=== PATIENT | female | born 1985 | race Caucasian/White ===

== ENCOUNTER 2016-12-27 11:37 | Emergency (ER) | payer SELFPAY ==
[2016-12-27 11:51] VITALS: TEMP 97.9
[2016-12-27] MEDS ORDERED: SODIUM CHLORIDE 0.9% (FLUSH) 10 ML SYG IV PRN (12:15)
[2016-12-27] MEDS ORDERED: SODIUM CHLORIDE 0.9% 1000ML 1,000 ML IVS ONE (12:17)
[2016-12-27] MEDS ORDERED: MECLIZINE HCL 12.5 MG TAB PO ONE (12:17)
[2016-12-27] MEDS ORDERED: METOCLOPRAMIDE HCL INJ 10 MG/2 ML VIAL IV ONE (12:17)
[2016-12-27] MEDS: diphenhydrAMINE HCL 50 MG/ML VIAL IV ONE ×2 (12:45→12:46)
--- NOTE | 2016-12-27 12:45 | CT ---
EXAM DESCRIPTION: Head. CT head without contrast. CLINICAL HISTORY: vertigo COMPARISON: None available TECHNIQUE: Multiple axial images of the head without contrast. This exam was performed according to our departmental dose-optimization program, which includes automated exposure control, adjustment of the mA and/or kV according to patient size and/or use of iterative reconstruction technique. FINDINGS: There is no CT evidence of intracranial hemorrhage, mass effect, or acute cortical infarction. The brain parenchyma and ventricles are normal. There are no abnormal extra-axial fluid collections. Vascular structures are unremarkable. There is no acute calvarial defect. Absent right frontal sinus, a developmental variant. Visualized paranasal sinuses and mastoid air cells are clear. IMPRESSION: No CT evidence of an acute intracranial abnormality. If symptoms persist, consider follow-up MRI. Electronically signed by: Raciel Scruggs MD 12/27/2016 12:44 PM CDT
--- NOTE | 2016-12-27 13:59 | ED.PDOC ---
History of Present Illness - General Chief Complaint: Neuro Symptoms/Deficits Stated Complaint: dizziness Time Seen by Provider: 12/27/16 12:01 Source: patient Exam Limitations: no limitations - History of Present Illness Initial Comments: PT REPORTS SUDDEN ONSET OF VERTIGO AND DIZZINESS THAT OCCURRED WHILE SHE WAS TALKING TO FAMILY MEMBERS AND LAUGHING. PT DENIES NAUSEA OR FOCAL WEAKNESS. Timing/Duration: intermittent Severity: moderate Improving Factors: immobilization Worsening Factors: movement Associated Symptoms: denies symptoms Allergies/Adverse Reactions: Allergies Codeine Allergy (Verified 12/27/16 11:51) Home Medications: Ambulatory Orders Meclizine HCl [Meclizine 25] 50 mg PO Q6HR PRN #30 tab 12/27/16 Review of Systems - Review of Systems Constitutional: Denies: chills, fever EENTM: Denies: double vision, ear pain Respiratory: Denies: cough, short of breath Cardiology: Denies: chest pain, palpitations Gastrointestinal/Abdominal: Denies: abdominal pain, vomiting Genitourinary: Denies: dysuria, hematuria Musculoskeletal: Denies: joint pain, joint swelling Skin: States: no symptoms reported Neurological: Denies: headache, numbness, paresthesia, tingling Past Medical History (General) - Patient Medical History Hx Seizures: No Hx Stroke: No Hx Dementia: No Hx Asthma: No Hx of COPD: No Hx Cardiac Disorders: No Hx Congestive Heart Failure: No Hx Pacemaker: No Hx Hypertension: No Hx Thyroid Disease: No Hx Diabetes: No Hx Gastroesophageal Reflux: No Hx Renal Disease: No Surgical History: other - Female History Patient is a Female of Child Bearing Age (10 -59 yrs old): Yes Patient : No Family Medical History - Family History Mother Family History: No Known Physical Exam - Physical Exam General Appearance: Alert, Comfortable, No apparent distress Eye Exam: bilateral normal Ears, Nose, Throat: hearing grossly normal, normal ENT inspection, normal pharynx Neck: non-tender, full range of motion, supple Respiratory: normal breath sounds, no respiratory distress Cardiovascular/Chest: regular rate, rhythm, no murmur Gastrointestinal/Abdominal: non tender, soft Back Exam: normal inspection Extremity: normal range of motion Neurologic: no motor/sensory deficits, alert, normal mood/affect, oriented x 3 Skin Exam: normal color, warm/dry Progress - Progress Progress: 12/27/16 14:38 PT REPORTS COMPLETE RESOLUTION OF SYMPTOMS ON REASSESSMENT. LABS AND CT FINDINGS DISCUSSED. - Results/Orders Results/Orders: 12/27/16 12:15 IV Care:Saline Lock per Protoc QSHIFT Telemetry .ONCE Sodium Chloride 0.9% (Flush) [Saline Flush Syringe] 10 ml IV PRN PRN EKG STAT Laboratory Results - last 24 hr 12/27/16 12/27/16 12/27/16 12:30 12:30 12:30 WBC 6.5 RBC 4.60 Hgb 13.1 Hct 39.5 MCV 85.9 MCH 28.4 MCHC 33.1 RDW 13.4 Plt Count 274 MPV 8.1 Absolute Neuts (auto) 3.60 Absolute Lymphs (auto) 1.80 Absolute Monos (auto) 0.70 Absolute Eos (auto) 0.30 Absolute Basos (auto) 0.10 Neutrophils % 55.9 Lymphocytes % 28.2 Monocytes % 11.0 H Eosinophils % 4.0 Basophils % 0.9 Sodium 137 Potassium 4.0 Chloride 103 Carbon Dioxide 29 Anion Gap 9.0 L BUN 10 Creatinine 0.65 BUN/Creatinine Ratio 15.4 Random Glucose 103 Serum Osmolality 273.1 L Calcium 9.0 Total Bilirubin 0.5 AST 26 ALT 31 Alkaline Phosphatase 56 Serum Total Protein 7.6 Albumin 4.5 Globulin 3.1 Albumin/Globulin Ratio 1.5 Serum HCG, Qual Negative - EKG/XRAY/CT EKG: Sinus - 69BPM, NL INTERVALS, NL AXIS, no ST T wave changes - NO OLD EKG FOR COMPARISON Departure - Departure Clinical Impression: Benign positional vertigo Time of Disposition: 14:39 Disposition: Discharge to Home or Self Care Condition: Good Departure Forms: ED Discharge - Pt. Copy, Patient Portal Self Enrollment Instructions: DI for Benign Paroxysmal Positional Vertigo Diet: resume usual diet Activity: increase activity as tolerated Referrals: [facility] [Provider Group] - 1-5 Days Prescriptions: Meclizine HCl [Meclizine 25] 50 mg PO Q6HR PRN #30 tab PRN Reason: Dizziness Home Medications: Ambulatory Orders Meclizine HCl [Meclizine 25] 50 mg PO Q6HR PRN #30 tab 12/27/16
[2016-12-27 14:22] VITALS: BP 134/80; O2SAT 98
== END 2016-12-27 14:46 | disposition home or self-care (01) ==
LOC: ER 11:37
DX: R42 Dizziness and giddiness (principal); Z88.6 Allergy status to analgesic agent
CPT/HCPCS: 70450; 80053; 84703; 85025; 93005; J1200; J2765; J7030

== ENCOUNTER 2017-12-06 17:01 | Emergency (ER) | payer BC ==
--- NOTE | 2017-12-06 20:07 | ED.PDOC ---
History of Present Illness - General Chief Complaint: GI Problem Stated Complaint: bilateral flank pain Time Seen by Provider: 12/06/17 19:58 Information Source: patient Exam Limitations: no limitations Additional Information: PT C/O PRIMARILY R FLANK PAIN WITH RADIATION TO RLQ X 1 WEEK. NO PRECIPITATING OR RELIEVING FACTORS. SOME WORSE WITH URINATION. MILD TO MOD IN INTENSITY - History of Present Illness Improving Factors: nothing Associated Symptoms: denies symptoms Review of Systems - Review of Systems Constitutional: Denies: chills, fever EENTM: States: no symptoms reported Respiratory: States: no symptoms reported Cardiology: States: no symptoms reported Gastrointestinal/Abdominal: States: abdominal pain. Denies: nausea, vomiting Genitourinary: Denies: discharge, dysuria, hematuria Musculoskeletal: States: back pain. Denies: joint pain Skin: States: no symptoms reported Neurological: Denies: numbness, paresthesia, weakness Endocrine: States: no symptoms reported Hematologic/Lymphatic: States: no symptoms reported Past Medical History (General) - Patient Medical History Hx Seizures: No Hx Stroke: No Hx Dementia: No Hx Asthma: No Hx of COPD: No Hx Cardiac Disorders: No Hx Congestive Heart Failure: No Hx Pacemaker: No Hx Hypertension: No Hx Thyroid Disease: No Hx Diabetes: No Hx Gastroesophageal Reflux: No Hx Renal Disease: No Hx Cancer: No Hx of HIV: No Hx Hepatitis C: No Hx MRSA: No Other Surgeries:: , BTL - Vaccination History Hx Tetanus, Diphtheria Vaccination: No Hx Influenza Vaccination: Yes Hx Pneumococcal Vaccination: No - Female History Patient : No Family Medical History - Family History Mother Family History: No Known Physical Exam - Physical Exam General Appearance: Alert, No apparent distress Eyes, Ears, Nose, Throat Exam: PERRL/EOMI, normal ENT inspection Neck: non-tender, full range of motion, supple Respiratory: lungs clear, normal breath sounds Cardiovascular/Chest: regular rate, rhythm, no murmur Gastrointestinal/Abdominal: non tender, soft, no organomegaly Back Exam: normal inspection, no vertebral tenderness, CVA tenderness (R) Extremity: normal range of motion, non-tender, normal inspection, no pedal edema Neurologic: alert, normal mood/affect Skin Exam: normal color, warm/dry Lymphatic: no adenopathy Progress - Progress Progress: 12/06/17 21:31 SLEEPING, FEELS BETTER, PAIN HAS RESOLVED. Departure - Departure Clinical Impression: Flank pain ICD-10 Supporting Text: DDX: MS PAIN, URETERAL SPASM, URETERAL COLIC Time of Disposition: 21:32 Disposition: Discharge to Home or Self Care Condition: Good Departure Forms: ED Discharge - Pt. Copy, Patient Portal Self Enrollment Prescriptions: Cyclobenzaprine HCl [Flexeril] 10 mg PO TID PRN #15 tab PRN Reason: Pain Indomethacin 50 mg PO TID PRN #14 cap PRN Reason: Pain Home Medications: Ambulatory Orders Meclizine HCl [Meclizine 25] 50 mg PO Q6HR PRN #30 tab 12/27/16 Cyclobenzaprine HCl [Flexeril] 10 mg PO TID PRN #15 tab 12/06/17 Indomethacin 50 mg PO TID PRN #14 cap 12/06/17
[2017-12-06] MEDS ORDERED: KETOROLAC TROMETHAMINE INJ 60 MG/2 ML VIAL IM ONE (20:09)
[2017-12-06] MEDS ORDERED: ORPHENADRINE CITRATE 30 MG/ML AMP IM ONE (20:09)
[2017-12-06 20:33] VITALS: TEMP 98.1
[2017-12-06 21:45] VITALS: BP 119/76; O2SAT 98
== END 2017-12-06 21:45 | disposition home or self-care (01) ==
LOC: ER 17:01
DX: R10.31 Right lower quadrant pain (principal)

== ENCOUNTER → 2018-02-27 | Outpatient (CLI) | payer BC | LOC: YCFC.O 15:51 | PROVIDERS: ATTEND Nurse Practitioner Family | DX: R42 Dizziness and giddiness (principal); R73.09 Other abnormal glucose ==

== ENCOUNTER 2019-05-18 10:55 | Emergency (ER) | payer SELFPAY ==
[2019-05-18] MEDS ORDERED: CIPROFLOXACIN 500 MG TAB PO ONE (11:33)
[2019-05-18] MEDS ORDERED: cefTRIAXone SODIUM 1 GM VIAL IM ONE (11:33)
--- NOTE | 2019-05-18 11:36 | ED.PDOC ---
History of Present Illness - General Chief Complaint: Problem Stated Complaint: urinary urgency/pain, low back pain Time Seen by Provider: 05/18/19 11:00 Source: patient Exam Limitations: no limitations - History of Present Illness Initial Comments: the patient is a 34-year-old female presenting to the emergency room secondary to urinary symptoms of urinary frequency and dysuria. She is also just generally felt poorly over the last couple of days. No new back pain that is unusual for her during her period. No fever. No definite flank pain. No unusual vaginal discharge. She has been taking Azo. She did have a significant urinry tract infection that grew out klebsiella.THE PATIENT IS CURRENTLY ON HER PERIOD Timing/Duration: other - 3-4 DAYS Improving Factors: nothing Worsening Factors: nothing Associated Symptoms: malaise Allergies/Adverse Reactions: Allergies Codeine Allergy (Verified 01/12/19 19:43) Erythromycin Allergy (Verified 01/12/19 19:43) Oxycodone [From Percocet] Allergy (Verified 12/06/17 19:15) Home Medications: Ambulatory Orders Ciprofloxacin [Cipro] 500 mg PO BID #10 tab 05/18/19 Review of Systems - Review of Systems Constitutional: States: no symptoms reported EENTM: States: no symptoms reported Respiratory: States: no symptoms reported Cardiology: States: no symptoms reported Gastrointestinal/Abdominal: States: no symptoms reported Genitourinary: States: see HPI Musculoskeletal: States: no symptoms reported Skin: States: no symptoms reported Neurological: States: no symptoms reported Endocrine: States: no symptoms reported All other Systems: No Change from Baseline Past Medical History (General) - Patient Medical History Hx Seizures: No Hx Stroke: No Hx Dementia: No Hx Asthma: No Hx of COPD: No Hx Cardiac Disorders: No Hx Congestive Heart Failure: No Hx Pacemaker: No Hx Hypertension: No Hx Thyroid Disease: No Hx Diabetes: No Hx Gastroesophageal Reflux: No Hx Renal Disease: No Hx Cancer: No Hx of HIV: No Hx Hepatitis C: No Hx MRSA: No Surgical History: other - Vaccination History Hx Tetanus, Diphtheria Vaccination: Yes Hx Influenza Vaccination: Yes Hx Pneumococcal Vaccination: No - Social History Hx Alcohol Use: Yes - occasional - Female History Patient is a Female of Child Bearing Age (10 -59 yrs old): Yes Patient : No Family Medical History - Family History Mother Family History: No Known Physical Exam - Physical Exam General Appearance: Alert, Comfortable, No apparent distress Eye Exam: bilateral normal Ears, Nose, Throat: hearing grossly normal Neck: full range of motion Respiratory: no respiratory distress, no accessory muscle use Cardiovascular/Chest: normal peripheral pulses, no edema Peripheral Pulses: radial,right: 2+, radial,left: 2+ Gastrointestinal/Abdominal: non tender, soft, other - OBESE Rectal Exam: deferred Back Exam: no CVA tenderness Extremity: normal range of motion, no pedal edema, normal capillary refill 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 uRINALYSIS IS CONSISTENT. tHE PATIENT WAS GIVEN A DOSE OF rOCEPHIN AND A DOSE OF CIPROFLOXACIN. sHE'LL BE PLACED ON CIPROFLOXACIN FOR THE NEXT 5 DAYS BASED ON PREVIOUS URINALYSIS CULTURES. hER CURRENT URINALYSIS WILL BE CULTURED WELL AND ANTIBIOTICS CAN BE CHANGED IF THE PATIENT IS NOT IMPROVING. sHE DOES NEED TO HAVE A REPEAT URINALYSIS SOMETIME WITHIN THE NEXT WEEK TO CONFIRM IMPROVEMENT. sHE NEEDS TO KEEP HERSELF WELL HYDRATED. fOLLOW UP WITH PRIMARY CARE DOCTOR LATER THIS WEEK. MESHA GOLDMAN [id number] - Results/Orders Results/Orders: Laboratory Tests 05/18/19 11:08 Urine Color Other Urine Appearance Cloudy Urine pH 5.5 Ur Specific [place] 1.020 Urine Protein Negative Urine Glucose (UA) Negative Urine Ketones Negative Urine Blood Large H Urine Nitrite Negative Urine Bilirubin Negative Urine Urobilinogen 0.2 Ur Leukocyte Esterase Trace H Urine RBC 10-20 H Urine WBC 5-10 H Ur Epithelial Cells 3-5 Urine Bacteria 1+ Departure - Departure Clinical Impression: Cystitis Disposition: Discharge to Home or Self Care Condition: Fair Departure Forms: ED Discharge - Pt. Copy, Patient Portal Self Enrollment Instructions: DI for Urinary Tract Infection (UTI) Diet: regular diet Activity: increase activity as tolerated Referrals: NORBERTO SCHMIDT IV, [employer] [employer] [Primary Care Provider] - 1-2 Weeks Prescriptions: Ciprofloxacin [Cipro] 500 mg PO BID #10 tab Home Medications: Ambulatory Orders Ciprofloxacin [Cipro] 500 mg PO BID #10 tab 05/18/19 Additional Instructions: THE PATIENT IS A 34-YEAR-OLD FEMALE PRESENTING TO THE EMERGENCY ROOM WITH SYMPTOMS OF CYSTITIS. uRINALYSIS IS CONSISTENT. tHE PATIENT WAS GIVEN A DOSE OF rOCEPHIN AND A DOSE OF CIPROFLOXACIN. sHE'LL BE PLACED ON CIPROFLOXACIN FOR THE NEXT 5 DAYS BASED ON PREVIOUS URINALYSIS CULTURES. hER CURRENT URINALYSIS WILL BE CULTURED WELL AND ANTIBIOTICS CAN BE CHANGED IF THE P ATIENT IS NOT IMPROVING. sHE DOES NEED TO HAVE A REPEAT URINALYSIS SOMETIME WITHIN THE NEXT WEEK TO CONFIRM IMPROVEMENT. sHE NEEDS TO KEEP HERSELF WELL HYDRATED. fOLLOW UP WITH PRIMARY CARE DOCTOR LATER THIS WEEK.
[2019-05-18] MEDS ORDERED: LIDOCAINE 1% 2 ML VIAL INJ ONE (11:37)
[2019-05-18 11:57] VITALS: BP 157/82; TEMP 97.9; O2SAT 99
== END 2019-05-18 11:56 | disposition home or self-care (01) ==
LOC: ER 10:55
DX: N30.90 Cystitis, unspecified without hematuria (principal); Z87.440 Personal history of urinary (tract) infections; Z88.5 Allergy status to narcotic agent; Z88.1 Allergy status to other antibiotic agents
CPT/HCPCS: 81001; 81025; J0696

== ENCOUNTER 2019-10-12 18:48 | Emergency (ER) | payer SELFPAY ==
[2019-10-12 19:18] VITALS: TEMP 98.8; O2SAT 97
[2019-10-12] MEDS ORDERED: methylPREDNISolone SODIUM SUC 125 MG/2 ML VIAL IM ONE (19:19)
--- NOTE | 2019-10-12 19:21 | ED.PDOC ---
History of Present Illness - General Chief Complaint: Respiratory Problem Stated Complaint: cough sinus, chest pressure, sore throat x's 1.5wk Time Seen by Provider: 10/12/19 18:57 - History of Present Illness Comments: c/o having yellow productive cough with some time blood in it associated with nasal and chest congestion , no fever or chills Cough Quality/Degree: moderate, productive cough, sputum, blood streaked sputum Improving Factors: nothing Worsening Factors: nothing Associated Symptoms: cough, nasal congestion, sore throat Allergies/Adverse Reactions: Allergies Codeine Allergy (Verified 10/12/19 19:18) Erythromycin Allergy (Verified 01/12/19 19:43) Hydrocodone Allergy (Verified 10/12/19 19:18) Oxycodone [From Percocet] Allergy (Verified 12/06/17 19:15) Home Medications: Ambulatory Orders Benzonatate 200 mg PO TID #12 cap 10/12/19 Sulfamethoxazole-Trimethoprim [Bactrim Ds 800-160 mg] 1 tab PO BID #20 tab 10/12/19 Review of Systems - Review of Systems Constitutional: States: no symptoms reported EENTM: States: see HPI Respiratory: States: no symptoms reported Cardiology: States: no symptoms reported Gastrointestinal/Abdominal: States: no symptoms reported Genitourinary: States: no symptoms reported Musculoskeletal: States: no symptoms reported Skin: States: no symptoms reported Neurological: States: no symptoms reported Endocrine: States: no symptoms reported Hematologic/Lymphatic: States: no symptoms reported Past Medical History (General) - Patient Medical History Hx Seizures: No Hx Stroke: No Hx Dementia: No Hx Asthma: No Hx of COPD: No Hx Cardiac Disorders: No Hx Congestive Heart Failure: No Hx Pacemaker: No Hx Hypertension: No Hx Thyroid Disease: No Hx Diabetes: No Hx Gastroesophageal Reflux: No Hx Renal Disease: No Hx Cancer: No Hx of HIV: No Hx Hepatitis C: No Hx MRSA: No Surgical History: other - Vaccination History Hx Tetanus, Diphtheria Vaccination: No Hx Influenza Vaccination: No Hx Pneumococcal Vaccination: No - Social History Hx Tobacco Use: No Hx Alcohol Use: Yes - occasional - Female History Patient : No Family Medical History - Family History Mother Family History: No Known Physical Exam - Physical Exam General Appearance: Alert, Comfortable ENT Exam: normal ENT inspection, hearing grossly normal, TMs normal, pharynx normal Neck: non-tender, full range of motion, supple, normal inspection Respiratory: chest non-tender, lungs clear, normal breath sounds, no respiratory distress, no accessory muscle use Cardiovascular/Chest: regular rate, rhythm Extremity: non-tender, normal inspection, no pedal edema 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 Copy, Patient Portal Self Enrollment Referrals: NORBERTO SCHMIDT IV, [facility] [Primary Care Provider] - 1-2 Weeks Prescriptions: Benzonatate 200 mg PO TID #12 cap Sulfamethoxazole-Trimethoprim [Bactrim Ds 800-160 mg] 1 tab PO BID #20 tab Home Medications: Ambulatory Orders Benzonatate 200 mg PO TID #12 cap 10/12/19 Sulfamethoxazole-Trimethoprim [Bactrim Ds 800-160 mg] 1 tab PO BID #20 tab 10/12/19
--- NOTE | 2019-10-12 19:47 | RAD ---
EXAM DESCRIPTION: Chest,1 View CLINICAL HISTORY:34 years Female, sob Comparison: None FINDINGS: No focal lung consolidation. No pleural effusion. No pneumothorax. Cardiomediastinal silhouette is within normal limits. No acute osseous abnormality. IMPRESSION: No acute cardiopulmonary disease. 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
[2019-10-12 20:25] VITALS: BP 142/84
== END 2019-10-12 20:25 | disposition home or self-care (01) ==
LOC: ER 18:48
DX: J20.9 Acute bronchitis, unspecified (principal); Z88.5 Allergy status to narcotic agent; Z88.1 Allergy status to other antibiotic agents
CPT/HCPCS: 71045; J2930

== ENCOUNTER 2020-10-26 07:11 | Emergency (ER) | payer SELFPAY ==
--- NOTE | 2020-10-26 07:49 | ED.PDOC ---
History of Present Illness - General Chief Complaint: Problem Stated Complaint: UTI, right lower back pain Time Seen by Provider: 10/26/20 07:13 Source: patient, family Exam Limitations: no limitations Additional Information: Complains of urinary tract infection, Suspicious on burning and dysuria for the last week - History of Present Illness Timing/Duration: week - 1 Quality: mild, moderate Onset Location: RLQ, suprapubic Radiation: none Activites at Onset: none Prior abdominal problems: none Sexual intercourse history: single partner Improving Factors: nothing Worsening Factors: nothing Associated Symptoms: dysuria, urinary frequency Allergies/Adverse Reactions: Allergies Codeine Allergy (Verified 10/26/20 07:27) Erythromycin Allergy (Verified 10/26/20 07:27) Hydrocodone Allergy (Verified 10/26/20 07:27) Oxycodone [From Percocet] Allergy (Verified 10/26/20 07:27) Home Medications: Ambulatory Orders Benzonatate 200 mg PO TID #12 cap 10/12/19 Sulfamethoxazole-Trimethoprim [Bactrim Ds 800-160 mg] 1 tab PO BID #20 tab 10/12/19 Review of Systems - Review of Systems Constitutional: States: chills. Denies: diaphoresis, fever EENTM: States: no symptoms reported Respiratory: States: no symptoms reported Cardiology: Denies: chest pain, edema Gastrointestinal/Abdominal: Denies: abdominal pain, nausea Musculoskeletal: Denies: joint pain, joint swelling, muscle pain Skin: Denies: change in color, dryness, lesions Neurological: Denies: depressed, paresthesia, pre-existing deficit Endocrine: Denies: intolerance to cold, intolerance to heat, unexplained weight gain, unexplained weight loss Hematologic/Lymphatic: Denies: anemia, easy bleeding, easy bruising Past Medical History (General) - Patient Medical History Hx Seizures: No Hx Stroke: No Hx Dementia: No Hx Asthma: No Hx of COPD: No Hx Cardiac Disorders: No Hx Congestive Heart Failure: No Hx Pacemaker: No Hx Hypertension: No Hx Thyroid Disease: No Hx Diabetes: No Hx Gastroesophageal Reflux: No Hx Renal Disease: No Hx Cancer: No Hx of HIV: No Hx Hepatitis C: No Hx MRSA: No - Vaccination History Hx Tetanus, Diphtheria Vaccination: No Hx Influenza Vaccination: No Hx Pneumococcal Vaccination: No - Social History Hx Tobacco Use: No Hx Alcohol Use: Yes - occasional - Female History Patient : No Family Medical History - Family History Mother Family History: No Known Physical Exam - Physical Exam General Appearance: Alert, No apparent distress Eyes, Ears, Nose, Throat Exam: PERRL/EOMI, normal ENT inspection Neck: non-tender, full range of motion, supple Cardiovascular/Respiratory: regular rate, rhythm, no M/R/G, normal peripheral pulses Gastrointestinal/Abdominal: non tender, soft, no organomegaly Rectal Exam: normal exam, normal rectal tone Back Exam: normal inspection, no CVA tenderness, CVA tenderness (R) Extremity: normal range of motion, non-tender, normal inspection, no pedal edema Neurologic: alert, normal mood/affect Skin Exam: normal color, warm/dry Lymphatic: no adenopathy Progress - Progress Progress: 10/26/20 07:51 Patient with nitrite infection treated with Rocephin discharged home with Cipro patient follow-up PCP ED return precautions and follow-up instructions explained to patient she verbalized understanding - EKG/XRAY/CT CT Ordered: No CT Interpretation Call Back: No Departure - Departure Clinical Impression: Urinary tract infection Disposition: Discharge to Home or Self Care Departure Forms: ED Discharge - Pt. 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
[2020-10-26] MEDS ORDERED: cefTRIAXone SODIUM 1 GM VIAL IM ONE (08:01)
[2020-10-26] MEDS ORDERED: LIDOCAINE 1% 10 ML VIAL INJ ONE (08:11)
[2020-10-26 08:42] VITALS: BP 151/97; TEMP 98; O2SAT 97
== END 2020-10-26 08:40 | disposition home or self-care (01) ==
LOC: ER 07:11
DX: N39.0 Urinary tract infection, site not specified (principal); Z88.5 Allergy status to narcotic agent; Z88.1 Allergy status to other antibiotic agents
CPT/HCPCS: 81001; 81025; 87086; J0696